=== PATIENT | female | born 1950 | race Caucasian/White ===

== ENCOUNTER → 2017-03-01 | Outpatient (CLI) | payer BC ==
[~2017-03-01] MED LIST: B-CO-25 PO; CLR10 PO; ESTRDIS TOP; LORA-741 PO; MAGN250T3 PO; METFTAB PO; ZOLP10TA6 PO
--- NOTE | 2017-03-01 15:56 | MAMMOGRAPHY REPORT ---
UNILATERAL LEFT DIGITAL DIAGNOSTIC MAMMOGRAM TOMOSYNTHESIS WITH CAD: 03/01/2017 CLINICAL HISTORY: 66-year-old woman presents for short follow-up of 3 small groupings/clusters of mi crocalcifications in the left upper outer quadrant. TECHNIQUE: Left CC and MLO 2-D digital and tomosynthesis images, spot magnification left CC and ML v iews were obtained. Current study was also evaluated with a Computer Aided Detection (CAD) system. COMPARISON: Comparison is made to exams dated: 08/26/2016 mammogram, 08/19/2016 mammogram, 08/15/20 15 mammogram, 07/03/2014 mammogram, 06/29/2013 mammogram, and 06/27/2012 mammogram - [facility] [place]. BREAST COMPOSITION: The tissue of the left breast is almost entirely fatty. FINDINGS: The parenchymal pattern of the left breast is similar to prior exams. There is a stable c ircumscribed subcentimeter mass in the medial, anterior subareolar left breast on the cc view, that appears unchanged dating back to at least 04/26/2009, therefore likely benign. The spot magnificati on views demonstrate approximately 3 small faint groupings of amorphous microcalcifications in the l ateral, middle one third of the breast, that have not significantly changed comparing to the 016 diagnostic mammograms, and likely present based on full-field views dating back to 2011. Howdebrae r, given the slight and screws to conspicuity longer stability is needed. Repeat left diagnostic ma mmograms including spot magnification views are recommended in 6 months. Annual right mammography i s also due at that time. No other new suspicious mass, architectural distortion or new suspicious m icrocalcifications are identified in the left breast. IMPRESSION: ACR-BI-RADS CATEGORY 3: PROBABLY BENIGN 1. The 3 small groupings of amorphous microcalcifications in the lateral left breast have not signi ficantly changed in appearance comparing to the spot magnification views performed on 08/26/2016. H owever, longer stability is needed and repeat diagnostic left mammograms are recommended in 6 months . Annual right mammography will also be due at that time. These results and recommendations were discussed with the patient at the time of the exam. She tent atively scheduled a follow-up appointment prior to leaving our department. Approximately 10% of breast cancers are not detected with mammography. A negative mammographic repor t should not delay biopsy if a clinically suggestive mass is present. Gina Rodas M.D. ay/:03/01/2017 12:33:45 Site Safety Coordinator: Dixie ROQUE(Ericka)(M), [facility] letter sent: Follow Up Recommended 3 BI-RADS Code: ACR-BI-RADS Category 3: Probably Benign
== END | disposition home or self-care (01) ==
LOC: C.MAMM 09:52
PROVIDERS: ATTEND Obstetrics & Gynecology
DX: R92.0 Mammographic microcalcification found on diagnostic imaging of breast (principal)

== ENCOUNTER → 2017-04-09 | Day surgery (SDC) | payer BC ==
[2017-03-30 11:07] VITALS: Ht 170.2 cm; Wt 88.6 kg
[~2017-04-09] VITALS: Ht 170.2 cm; Wt 88.6 kg
[~2017-04-09] MED LIST changes: +SODIUM CHLORIDE 0.9% 500ML 500 ML IV ONE
[2017-04-09 08:11] VITALS: TEMP 36.6
--- NOTE | 2017-04-09 08:40 | Endo History and Physical ---
History & Physical Date of Service: Apr 09, 2017. Chief Complaint: History of polyps Referring Physician: Dr. Kyaw Wright History of Present Illness 66 yo CF who presents for colonoscopy secondary to history of colon polyps. Past Surgical History Hx Cardiac Surgery: No Hx Internal Defibrillator: No Hx Pacemaker: No Hx Abdominal Surgery: No Hx of Implantable Prosthesis: No Hx Post-Op Nausea and Vomiting: No Hx Cancer Surgery: No Hx Thoracic Surgery: No Hx Orthopedic: No Hx Urinary Tract Surgery: No Family History None Social History Smoking Status: Former Smoker Hx Substance Use: No Hx Alcohol Use: Yes (1 DRINK/DAY) Allergies Coded Allergies: Codeine (Verified Adverse Reaction, Unknown, "DON'T LIKE THE FEELING", ) Current Medications Reported Home Medications Medications Dose Route/Sig Max Daily Dose Days Date Category Ativan (Lorazepam) 0.5 Mg Tab 0.5 Mg PO HS PRN 03/30/17 Reported Zolpidem Tartrate 10 Mg Tab 1 Tab PO HS PRN 03/30/17 Reported Claritin (Loratadine) 10 Mg Tab 10 Mg PO DAILY PRN 03/30/17 Reported Magnesium 250 mg (Magnesium) 1 Tab Tab 1 Tab PO QAM 03/30/17 Reported Super B Complex Maxi (B-Complex W/ Folic Acid) 1 Tab Tab 1 Tab PO QAM 03/30/17 Reported Climara Pro (Estradiol-Levonorgestrel) 1 Dis Dis 1 Patch TOP WK 03/30/17 Reported Glucophage Ext Rel (Metformin HCl) 500 Mg Tab 500 Mg PO QAM 03/30/17 Reported Vital Signs Weight (Kilograms): 88.64 Height (Feet): 5 Height (Inches): 7 Date Time Temp Pulse Resp B/P (MAP) Pulse Ox O2 Delivery O2 Flow Rate FiO2 04/09/17 08:11 36.6 81 16 136/91 (106) 95 Room Air Physical Exam General Appearance: WD/WN, no apparent distress Respiratory/Chest: Auscultation: breath sounds normal Cardiovascular: Heart Auscultation: RRR Abdomen: Bowel Sounds: normal Inspection & Palpation: soft, non-distended, no tenderness, guarding & rebound Assessment and Plan Assessment: 66 yo CF who presents for colonoscopy secondary to history of colon polyps. Plan: Proceed with colonoscopy.
--- NOTE | 2017-04-09 09:06 | Discharge Instructions ---
Endoscopy Patient Instructions Date / Procedure(s) Performed Apr 09, 2017. Colonoscopy Allergy Information Coded Allergies: Codeine (Verified Adverse Reaction, Unknown, "DON'T LIKE THE FEELING", ) Discharge Date / Findings Apr 09, 2017. Large colon polyp in cecum s/p biopsies Ascending colon polyp Diverticulosis Internal hemorrhoids Medication Instructions Stopped Medication(s): Patient was told to stop her metformin. She last had it on Wednesday. OK to resume all medications today as prescribed Medications Dose Route/Sig Max Daily Dose Days Date Category Ativan (Lorazepam) 0.5 Mg Tab 0.5 Mg PO HS PRN 03/30/17 Reported Zolpidem Tartrate 10 Mg Tab 1 Tab PO HS PRN 03/30/17 Reported Claritin (Loratadine) 10 Mg Tab 10 Mg PO DAILY PRN 03/30/17 Reported Magnesium 250 mg (Magnesium) 1 Tab Tab 1 Tab PO QAM 03/30/17 Reported Super B Complex Maxi (B-Complex W/ Folic Acid) 1 Tab Tab 1 Tab PO QAM 03/30/17 Reported Climara Pro (Estradiol-Levonorgestrel) 1 Dis Dis 1 Patch TOP WK 03/30/17 Reported Glucophage Ext Rel (Metformin HCl) 500 Mg Tab 500 Mg PO QAM 03/30/17 Reported Provider Instructions Activity Restrictions - No exercising or heavy lifting for 24 hours. - Do not drink alcohol the day of the procedure. - Do not drive a car or operate machinery until the day after the procedure. - Do not make any important decisions or sign important papers in 24 hours after the procedure. Following Day: - Return to full activity which may include returning to work/school. Diet Start your diet with liquids and light foods (jello, soup, juice, toast). Then eat your usual diet if not nauseated. Treatment For Common After Affects For mild abdominal pain, bloating, or excessive gas: - Rest - Eat lightly - Lie on right side Follow-Up Information Follow-up with Dr. Kyaw Wright as scheduled Anesthesia Information What You Should Know You have had a procedure that required some medicine to reduce anxiety and discomfort. This treatment is called moderate sedation. After receiving the treatment, you may be sleepy, but you will be able to breathe on your own. The effects of the treatment may last for several hours. Follow these instructions along with Activity/Diet recommendations noted above: * Do NOT do anything where dizziness or clumsiness would be dangerous. * Rest quietly at home today, then you can be up and about tomorrow. * Have a responsible person stay with you the rest of today. * You may have had an I.V. today. If so, you may take the dressing off later today. Recommendations Call your doctor if: * Trouble breathing * Continuous vomiting for more than 24 hours * Temperature above 101 degrees * Severe abdominal pain or bloating * Pain not relieved by pain medicine ordered * There is increased drainage or redness from any incision * A large amount of rectal bleeding greater than 2-3 tablespoons. (If you had a polyp/s removed or have hemorrhoids, a small amount of blood - from the rectum is to be expected.) * You have any unanswered questions or concerns. IN THE EVENT OF A SERIOUS EMERGENCY, GO TO THE NEAREST EMERGENCY ROOM Your discharge instructions were prepared by provider Ludwig Ozuna. Patient Instructions Signature Page Nanci Dunlap Patient (or Guardian) Signature/Date: I have read and understand the instructions given to me by my caregivers. Caregiver/RN/Doctor Signature/Date: The above-named patient and/or guardian has received patient instructions on this date. + Original Patient Signature Page (only) stays with chart. Please make copy for patient.
[2017-04-09 09:38] VITALS: BP 142/81; PULSE 72; O2SAT 100
--- NOTE | 2017-04-09 09:59 | GI REPORT ---
Procedure Date: 04/09/2017 8:39 AM Procedure: Colonoscopy Indications: Family history of colon cancer in a first-degree relative Medicines: Monitored Anesthesia Care Complications: No immediate complications. Estimated Blood Loss: Estimated blood loss: none. Procedure: Pre-Anesthesia Assessment: - Prior to the procedure, a History and Physical was performed, and patient medications and allergies were reviewed. The patient's tolerance of previous anesthesia was also reviewed. The risks and benefits of the procedure and the sedation options and risks were discussed with the patient. All questions were answered, and informed consent was obtained. Prior Anticoagulants: The patient has taken no previous anticoagulant or antiplatelet agents. ASA Grade Assessment: II - A patient with mild systemic disease. After reviewing the risks and benefits, the patient was deemed in satisfactory condition to undergo the procedure. After I obtained informed consent, the scope was passed under direct vision. Throughout the procedure, the patient's blood pressure, pulse, and oxygen saturations were monitored continuously. The Scope was introduced through the anus and advanced to the cecum, identified by appendiceal orifice and ileocecal valve. The colonoscopy was performed without difficulty. The patient tolerated the procedure well. The quality of the bowel preparation was good. The ileocecal valve, appendiceal orifice, and rectum were photographed. Findings: A 20 mm polypoid lesion was found in the cecum. The lesion was sessile. No bleeding was present. This was biopsied with a cold forceps for histology. A 3 mm polyp was found in the ascending colon. The polyp was sessile. The polyp was removed with a cold snare. Resection and retrieval were complete. Multiple small-mouthed diverticula were found in the sigmoid colon. Non-bleeding internal hemorrhoids were found during retroflexion. The hemorrhoids were small. Impression: - Likely benign polypoid lesion in the cecum. Biopsied. - One 3 mm polyp in the ascending colon, removed with a cold snare. Resected and retrieved. - Diverticulosis in the sigmoid colon. - Non-bleeding internal hemorrhoids. Recommendation: - Resume previous diet. - Continue present medications. - Repeat colonoscopy for surveillance based on pathology results. - Return to primary care physician as previously scheduled. - Recommend surgical consultation with Dr. Moctezuma or Dr. Nas Ozuna DO 04/09/2017 9:58:21 AM This report has been signed electronically. Note Initiated On: 04/09/2017 8:39 AM I attest to the content of the Intraoperative Record and orders documented therein, exceptions below
--- NOTE | 2017-04-09 10:11 | Anesthesiology Progress Note ---
Anesthesia Post Op Note Date & Time Apr 09, 2017 at 10:11 Vital Signs Pain Intensity: 0 Vital Signs Past 12 Hours Date Time Temp Pulse Resp B/P (MAP) Pulse Ox O2 Delivery O2 Flow Rate FiO2 04/09/17 09:38 72 18 142/81 (101) 100 Room Air 04/09/17 09:30 70 18 121/69 (86) 97 Room Air 04/09/17 09:06 75 18 128/83 (98) 98 Room Air 04/09/17 08:11 36.6 81 16 136/91 (106) 95 Room Air Notes Mental Status: alert / awake / arousable, participated in evaluation Pt Amnestic to Procedure: Yes Nausea / Vomiting: adequately controlled Pain: adequately controlled Airway Patency, RR, SpO2: stable & adequate BP & HR: stable & adequate Hydration State: stable & adequate Anesthetic Complications: no major complications apparent
== END | disposition home or self-care (01) ==
LOC: C.GI 07:49
PROVIDERS: ATTEND Internal Medicine
DX: Z86.010 Personal history of colon polyps (principal); D12.2 Benign neoplasm of ascending colon; Z80.0 Family history of malignant neoplasm of digestive organs; K64.8 Other hemorrhoids; K57.30 Diverticulosis of large intestine without perforation or abscess without bleeding; Z87.891 Personal history of nicotine dependence

== ENCOUNTER → 2017-08-09 | Outpatient (CLI) | payer BC ==
[~2017-08-09] MED LIST changes: -SODIUM CHLORIDE 0.9% 500ML 500 ML IV ONE
[2017-08-09 10:28] LABS: BASO % 0.2 %; BASO ABS # 0.02 K/uL (0-0.2); COMPLETE YES; EOS % 1.9 %; HEMATOCRIT 43.9 % (37-47); IG% 0.2 %; LYMPH % 19.3 %; LYMPH ABS # 1.82 K/uL (1.2-3.4); MEAN CELL VOLUME 92.6 fL (80-100); MEAN CORPUSCULAR HEMOGLOBIN 31.2 pg (25-34); MEAN CORPUSCULAR HGB CONC 33.7 g/dl (32-36); MEAN PLATELET VOLUME 10.1 fL (7.4-10.4); MONO % 5.5 %; NEUT % 72.9 %; PLATELET COUNT 356 K/uL (130-400); RED BLOOD COUNT 4.74 M/uL (4.2-5.4); WHITE BLOOD COUNT 9.42 K/uL (4.8-10.8)
[2017-08-09 10:54] LABS: ALT/SGPT 22 U/L (12-78); BLOOD UREA NITROGEN 14 mg/dl (7-18); CALCIUM 9.3 mg/dl (8.5-10.1); CARBON DIOXIDE 25 mmol/L (21-32); CHLORIDE 107 mmol/L (98-107); CHOLESTEROL 173 mg/dl (0-200); CREATININE 0.65 mg/dl (0.60-1.20); GLUCOSE 174 mg/dl (70-99); SODIUM 140 mmol/L (136-145); TRIGLYCERIDES 142 mg/dl (0-150); VERY LOW DENSITY LIPOPROT CALC 28 mg/dl
[2017-08-09 11:05] LABS: ALKALINE PHOSPHATASE 108 U/L (45-117); AST/SGOT 10 U/L (15-37); CHOLESTEROL/HDL RATIO 3.4; HDL CHOLESTEROL 51 mg/dl; LDL CHOLESTEROL CALCULATED 94 mg/dl
[2017-08-09 11:26] LABS: RATIO 39.6 mcg/mg (0-30.0)
== END | disposition home or self-care (01) ==
LOC: C.LAB1850 08:55
PROVIDERS: ATTEND Internal Medicine Pulmonary Disease
DX: G47.00 Insomnia, unspecified (principal); E11.9 Type 2 diabetes mellitus without complications

== ENCOUNTER → 2017-08-24 | Outpatient (CLI) | payer BC ==
--- NOTE | 2017-08-24 15:14 | MAMMOGRAPHY REPORT ---
BILATERAL DIGITAL DIAGNOSTIC MAMMOGRAM TOMOSYNTHESIS WITH CAD: 08/24/2017 CLINICAL HISTORY: 67-year-old woman presents for follow-up of small groupings of microcalcifications in the lateral left breast. Also time of annual bilateral screening exam. TECHNIQUE: Bilateral CC and MLO 2-D and tomosynthesis images, spot magnification left CC, ML and left cleavage views were obtained. Current study was also evaluated with a Computer Aided Detection (CAD ) system. COMPARISON: Comparison is made to exams dated: 03/01/2017 mammogram, 08/26/2016 mammogram, 08/19/2016 mammogram, 08/15/2015 mammogram, 07/03/2014 mammogram, and 06/29/2013 mammogram - [facility]. BREAST COMPOSITION: There are scattered areas of fibroglandular density in both breasts. FINDINGS: The parenchymal pattern is similar to prior mammograms. There is a 5 mm nodular asymmetry in the medial anterior subareolar left breast on the CC view that appears similar dating back to [place] 04/26/2009, therefore likely benign. There are scattered and loosely grouped punctate microcalc ifications in the middle one third of the right breast, which appear stable dating back to at least 2 015. There are 3 groupings of amorphous and punctate microcalcifications in the lateral middle one t hird of the left breast, approximate 2:00 to 3:00 axes, that are stable based on spot magnification v iews dating back to 08/26/2016, also likely benign. Another 12 month follow-up diagnostic mammogram including spot magnification views is recommended to ensure at least 2 years of stability to confirm benignity. No new suspicious mass, architectural distortion or cluster of microcalcifications is see n bilaterally. IMPRESSION: ACR-BI-RADS CATEGORY 3: PROBABLY BENIGN Stable bilateral mammograms including benign-appearing small groupings of punctate and amorphous micr ocalcifications in the lateral left breast. A 12 month follow-up diagnostic mammogram including left spot magnification views is recommended to ensure longer stability. Full field bilateral mammograph y will also be due at that time. These results and recommendations were discussed with the patient at the time of the exam. Approximately 10% of breast cancers are not detected with mammography. A negative mammographic report should not delay biopsy if a clinically suggestive mass is present. Gina Rodas M.D. ay/:08/24/2017 14:30:49 Industrial Relations Representative: Eileen Joseph RT(Ericka)(M), [facility] letter sent: Follow Up Recommended 3 BI-RADS Code: ACR-BI-RADS Category 3: Probably Benign
== END | disposition home or self-care (01) ==
LOC: C.MAMM 13:44
PROVIDERS: ATTEND Internal Medicine Pulmonary Disease
DX: Z09 Encounter for follow-up examination after completed treatment for conditions other than malignant neoplasm (principal); R92.0 Mammographic microcalcification found on diagnostic imaging of breast

== ENCOUNTER → 2018-03-07 | Outpatient (CLI) | payer OTHER ==
[2018-03-07 10:28] LABS: ALBUMIN 3.7 gm/dl (3.4-5.0); ALT/SGPT 19 U/L (12-78); AST/SGOT 9 U/L (15-37); BLOOD UREA NITROGEN 11 mg/dl (7-18); CALCIUM 8.9 mg/dl (8.5-10.1); CARBON DIOXIDE 28 mmol/L (21-32); CREATININE 0.71 mg/dl (0.60-1.20); GLUCOSE 159 mg/dl (70-99); POTASSIUM 3.7 mmol/L (3.5-5.1); SODIUM 140 mmol/L (136-145)
[2018-03-07 10:31] LABS: ALKALINE PHOSPHATASE 98 U/L (45-117); TOTAL PROTEIN 7.2 gm/dl (6.4-8.2)
[2018-03-07 11:03] LABS: HEMOGLOBIN A1C 6.7 % (4.5-5.6)
== END | disposition home or self-care (01) ==
LOC: C.LAB1850 09:11
PROVIDERS: ATTEND Internal Medicine Pulmonary Disease
DX: E11.9 Type 2 diabetes mellitus without complications (principal); K63.9 Disease of intestine, unspecified